=== PATIENT | male | born 1935 | race Caucasian/White ===

== ENCOUNTER 2017-02-19 07:49 | Inpatient (IN) | payer OTHER, MEDICARE ==
--- NOTE | 2017-02-19 07:50 | EDPHY ---
H & P Time Seen by Provider: 02/19/17 07:50 Constitutional: Initial Vital Signs Temperature (C) 36.7 C 02/19/17 07:59 Heart Rate 108 H 02/19/17 07:59 Respiratory Rate 20 02/19/17 07:59 Blood Pressure 152/105 H 02/19/17 07:59 O2 Sat (%) 92 02/19/17 07:59 O2 Delivery Mode Non-Rebreather Mask O2 (L/minute) 12 Allergies/Adverse Reactions: No Known Allergies Allergy (Verified 02/19/17 07:59) Home Medications: Medication Instructions Recorded Aspirin EC [Aspirin EC 325 mg 325 mg PO DAILY 02/28/14 (OTC)] Carbidopa/Levodopa 10/100Mg 2 tab PO ,,,,212902/28/14 [Sinemet 10/100 MG (RX)] Docusate Sodium [Colace 100 MG 100 mg PO BID 02/28/14 (OTC)] Polyethylene Glycol 3350 [Miralax 17 gm PO HS 02/28/14 17 gm (OTC)] Pravastatin Sodium [Pravachol] 20 mg PO HS 02/28/14 Venlafaxine Xr [Effexor Xr 75MG 75 mg PO ,02/28/14 (RX)] Venlafaxine Xr [Effexor Xr] 150 mg PO DAILY 02/28/14 Acetaminophen [Tylenol ES 500 mg 500 - 1,000 mg PO Q8 PRN 02/19/17 (*)] Alfuzosin HCl [Alfuzosin HCl ER] 10 mg PO DAILY 02/19/17 Cyanocobalamin [Vitamin B12 (*)] 500 mcg PO DAILY 02/19/17 Herbals/Supplements -Info Only 1 ea PO DAILY 02/19/17 Memantine HCl [Namenda 5 mg (*)] 5 mg PO DAILY 02/19/17 Memantine HCl [Namenda 5 mg (*)] 10 mg PO HS 02/19/17 QUEtiapine FUMARATE [Seroquel 100 100 mg PO HS 02/19/17 mg (*)] Ranitidine HCl 600 mg PO HS 02/19/17 risperiDONE [Risperdal 0.5mg (*)] 0.5 mg PO BID 02/19/17 risperiDONE [Risperdal 0.5mg (*)] 0.5 mg PO DAILY PRN 02/19/17 Medical Decision Making - Diagnostics Imaging Results: Imaging Impressions Chest X-Ray 02/19/17 07:56 Impression: Diffuse left lung opacity is presumably pneumonia. Results called and discussed with Ken Ramirez MD on February 19, 2017 at 1018 hours. Imaging: Discussed imaging studies w/ on call Radiologist, I viewed and interpreted images myself ED Course/Re-evaluation: CHIEF COMPLAINT: Hypoxemia HISTORY OF PRESENT ILLNESS: This patient is an 81 year old male with history of Parkinson's dementia arriving via EMS from [facility] after his family found him breathing with more difficulty this morning. His oxygen saturation at that time was 73%. The patient lives in a memory care unit with no medical treatment options. He has MOST paperwork defining his scope of treatment to limited interventions including fluids and antibiotics, but no airway or cardiac interventions. The patient is non-verbal and non-interactive, moaning occasionally. The patient's states he is usually awake and alert. She reports he had a stroke in November of this year, and was treated at the [facility] for one week. He has since progressed to mechanical soft diet, and his family reports he has been improving. His son reports that Monday morning, two days ago, he choked on a sausage at breakfast, and nursing staff were concerned regarding possible aspiration. HPI obtained primarily through EMS and family at bedside. REVIEW OF SYSTEMS: A 10 point review of systems was performed and is negative with the exception of the elements mentioned in the history of present illness. PHYSICAL EXAM: HR, BP, O2 Sat, RR. Temp noted General Appearance: Non-verbal, non-interactive, well hydrated and non-toxic appearing. Head: Atraumatic without scalp tenderness or obvious injury Eyes: Pupils equal, round, reactive to light and accommodation, EOMI, no trauma , no injection. Ears: Clear bilaterally, no perforation, normal landmarks Nose: Atraumatic, no rhinorrhea, clear. Throat: There is no erythema or exudates, no lesions, normal tonsils, mucus membranes moist. Neck: Supple, nontender, no lymphadenopathy. Respiratory: Diffuse rhonchi. No retractions, no distress, no wheezes, and no accessory muscle use. Cardiovascular: Regular rate and rhythm, no murmurs, rubs, or gallops. Good capillary refill all extremities. Gastrointestinal: Abdomen is soft, nontender, non-distended, no masses, no rebound, no guarding, no peritoneal signs. Musculoskeletal: Normal active ROM of all extremities, atraumatic. Neurological: Obtunded, non-verbal, non-interactive. Nonfocal neuro exam. Skin: No rashes, good turgor, no nodules on palpation. Past medical history: Parkinson's dementia, bipolar, GERD, CAD, CRD stage III Past surgical history: Noncontributory Family history: Noncontributory Social history: Lives at [facility]. PCP Noman Gibbs. DIFFERENTIAL DIAGNOSIS: The differential diagnosis for the patient's fever included but was not limited to pneumonia, urinary tract infection, viral syndrome, meningitis, and sepsis. MEDICAL DECISION MAKING: This patient is an 81 year old male with stage III kidney disease and Parkinson' s dementia presenting today following noted hypoxemia and abnormal behavior at his [facility]. He has improved from 73% oxygen saturation to 95% on oxygen via nonrebreather. Physical exam reveals diffuse rhonchi. Plan for chest x-ray to assess for acute processes including pneumonia or other infection. The patient has limited treatment options due to hie DNR/MOST. As he will accept fluids and antibiotics, plan to treat with Ertapenem and Levaquin. His family approves of this treatment. 8:30 Reviewed x-ray results and discussed with Dr. Santo Denney, radiologist. Diffuse bilateral infiltrate noted, indicative of pneumonia. Plan to administer 1gm IV Ertapenem and 750mg IV Levaquin for treatment of possible aspiration and infection. 8:47 Spoke with hospitalist service. Dr. Culver accepts admission for pneumonia. 8:52 Reassessed patient. Spoke with family regarding results of chest x-ray and plan for admission. I answered the family's questions appropriately, and they are comfortable with the patient's admission for pneumonia. - Data Points Laboratory Results: Laboratory Results 02/19/17 07:51 02/19/17 07:51 02/19/17 02/19/17 02/19/17 07:51 07:51 07:51 WBC 14.25 10^3/uL H 10^3/uL (3.80-9.50) RBC 4.64 10^6/uL 10^6/uL (4.40-6.38) Hgb 14.5 g/dL g/dL (13.7-17.5) Hct 44.3 % % (40.0-51.0) MCV 95.5 fL fL (81.5-99.8) MCH 31.3 pg pg (27.9-34.1) MCHC 32.7 g/dL g/dL (32.4-36.7) RDW 13.2 % % (11.5-15.2) Plt Count 224 10^3/uL 10^3/uL (150-400) MPV 9.6 fL fL (8.7-11.7) Neut % (Auto) 88.6 % H % (39.3-74.2) Lymph % (Auto) 4.8 % L % (15.0-45.0) Waller % (Auto) 5.8 % % (4.5-13.0) Eos % (Auto) 0.0 % L % (0.6-7.6) Baso % (Auto) 0.1 % L % (0.3-1.7) Nucleat RBC Rel Count 0.0 % % (0.0-0.2) Absolute Neuts (auto) 12.62 10^3/uL H 10^3/uL (1.70-6.50) Absolute Lymphs (auto) 0.68 10^3/uL L 10^3/uL (1.00-3.00) Absolute Monos (auto) 0.83 10^3/uL H 10^3/uL (0.30-0.80) Absolute Eos (auto) 0.00 10^3/uL L 10^3/uL (0.03-0.40) Absolute Basos (auto) 0.02 10^3/uL 10^3/uL (0.02-0.10) Absolute Nucleated RBC 0.00 10^3/uL 10^3/uL (0-0.01) Immature Gran % 0.7 % % (0.0-1.1) Immature Gran # 0.10 10^3/uL 10^3/uL (0.00-0.10) Sodium 145 mEq/L H mEq/L (134-144) Potassium 4.6 mEq/L mEq/L (3.5-5.2) Chloride 108 mEq/L mEq/L (97-110) Carbon Dioxide 20 mEq/l L mEq/l (22-31) Anion Gap 17 mEq/L H mEq/L (8-16) BUN 42 mg/dL H mg/dL (7-23) Creatinine 1.6 mg/dL H mg/dL (0.7-1.3) Estimated GFR 42 Glucose 153 mg/dL H mg/dL (70-100) Calcium 10.3 mg/dL mg/dL (8.5-10.4) NT-Pro-B Natriuret Pep 8850 pg/mL H pg/mL (0-450) Medications Given: Discontinued Medications Ertapenem 1 gm/ Sodium (Chloride) 100 mls @ 200 mls/hr IV EDNOW ONE PRN Reason: Protocol Stop: 02/19/17 09:19 Last Admin: 02/19/17 10:30 Dose: 100 mls Levofloxacin/Dextrose (Levaquin 750 Mg (Premix)) 150 mls @ 100 mls/hr IV EDNOW ONE PRN Reason: Protocol Stop: 02/19/17 10:19 Last Admin: 02/19/17 09:13 Dose: 150 mls Departure - Departure Disposition: [facility] Inpatient Acute Clinical Impression: Pneumonia Qualifiers: Pneumonia type: aspiration pneumonia Aspiration pneumonia type: unspecified Laterality: bilateral Lung location: unspecified part of lung Qualified Code(s) : J69.0 - Pneumonitis due to inhalation of food and vomit Condition: Fair Report Scribed for: Ken Ramirez Report Scribed by: Deysi Martinez Date of Report: 02/19/17 Time of Report: 08:44
[2017-02-19 08:31] LABS: % IMMATURE GRANULYOCYTES 0.7 % (0.0-1.1); ADD DIFF? NO; ADD MORPH? NO; ADD SCAN? YES; ATYPICAL LYMPHOCYTE FLAG 10 (0-99); FRAGMENT RBC FLAG 0 (0-99); HEMATOCRIT 44.3 % (40.0-51.0); HEMOGLOBIN 14.5 g/dL (13.7-17.5); LEFT SHIFT FLG 0 (0-99); LIPEMIA HEMOLYSIS FLAG 80 (0-99); MEAN CELL HEMOGLOBIN 31.3 pg (27.9-34.1); MEAN CELL HEMOGLOBIN CONCENTR. 32.7 g/dL (32.4-36.7); MEAN CELL VOLUME 95.5 fL (81.5-99.8); MEAN PLATELET VOLUME 9.6 fL (8.7-11.7); PLATELET COUNT 224 10^3/uL (150-400); RED BLOOD CELL COUNT 4.64 10^6/uL (4.40-6.38); RED CELL DISTRIBUTION WIDTH 13.2 % (11.5-15.2)
[2017-02-19 08:44] LABS: PLATELET CLUMPS FLAG 300 (0-99)
[2017-02-19] MEDS ORDERED: ERTAPENEM 1 GM in NS 100 ML IV ONE (08:50)
[2017-02-19 08:51] LABS: ANION GAP 17 mEq/L (8-16); CALCIUM 10.3 mg/dL (8.5-10.4); CARBON DIOXIDE 20 mEq/l (22-31); CHLORIDE 108 mEq/L (97-110); CREATININE 1.6 mg/dL (0.7-1.3); GLOMERULAR FILTRATION RATE 42; GLUCOSE 153 mg/dL (70-100); POTASSIUM 4.6 mEq/L (3.5-5.2); SODIUM 145 mEq/L (134-144)
[2017-02-19 09:11] LABS: SCAN NEGATIVE
[2017-02-19] MEDS ORDERED: ACETAMINOPHEN 325 MG TAB PO PRN (11:19)
[2017-02-19] MEDS ORDERED: ONDANSETRON 4 MG/2 ML VIAL IVP PRN (11:19)
[2017-02-19] MEDS: D5W 1/2 NS W/ 20 KCl/L 1,000 ML IV SCH ×2 (11:44→21:30)
--- NOTE | 2017-02-19 11:54 | GHP ---
[f rep st] HISTORY AND PHYSICAL DATE OF ADMISSION: 02/19/2017 CHIEF COMPLAINT: Altered mental status. HISTORY OF PRESENT ILLNESS: This is an 81-year-old male with a history of dementia, previous stroke , Parkinson's disease and depression, who resides at [facility] in [place], who was brought to the emergency department due to altered mental status and trouble breathing. During the time of my exam, the patient was virtually unarousable. All history was obtained via the patient's son and spouse. The patient was noted to have some choking at 10:00 p.m. on Monday. On Monday morning, he also ch oked on a sausage. Around lunchtime, he ate half his breakfast and in the afternoon was noted to fischer ve poor color and some shortness of breath. He was checked on by his son as well as a nurse at the [facility], where he was noted to have some "raspy" breathing. Since yesterday, he has had worsening somnolence and has not been able to take any of his medications. He was brought into the emergency department for further evaluation. He has not been noted to have any fevers. He had been in his usual state of health up until yesterd ay. He has been seen by a speech therapist in the past after his stroke in November, who did note some swallowing difficulties that they attributed to his Parkinson's. PAST MEDICAL HISTORY: 1. CVA in November of 2016, [facility]. 2. Parkinson's disease. 3. Depression. 4. Bipolar. 5. Dementia. PAST SURGICAL HISTORY: Denies. HOME MEDICATIONS: Reviewed. Refer to [facility] for details. ALLERGIES: No known drug allergies. SOCIAL HISTORY: No history of alcohol, tobacco, or illicit drug use. FAMILY HISTORY: Reviewed and noncontributory. REVIEW OF SYSTEMS: A comprehensive 10-point review of systems was attempted. However, this was nila btainable due to the patient's altered mental status. PHYSICAL EXAMINATION: VITAL SIGNS: Blood pressure 135/95, pulse of 107, respiratory rate 22, O2 sa turation 95% on nonrebreather, temperature 37.3. GENERAL: Ill-appearing. HEAD: Normocephalic, at raumatic. EYES: PERRLA. Sclerae anicteric. MOUTH: Moist mucous membranes. NECK: Supple. No l ymphadenopathy. CARDIOVASCULAR: Tachycardic. S1, S2. There is JVD. There is no lower extremity edema. PULMONARY: Bilateral rales, left greater than right, with some rhonchi. No wheezing. The patient is slightly tachypneic. ABDOMEN: Soft, nontender, nondistended. No guarding or rebound te nderness. Normoactive bowel sounds. EXTREMITIES: No clubbing or cyanosis. NEURO: Hard to assess due to the patient's altered mental status. He is not following commands. Face does appear to be symmetric. SKIN: Clear. No rashes, but I did not examine the patient for decubiti. DIAGNOSTICS: WBC is 14.2, hemoglobin 14.5, hematocrit 44.3, platelets 224. Sodium 145, potassium 4 .6, chloride 108, CO2 of 20, BUN 42, creatinine 1.6, glucose 153. Chest x-ray, which I visualized and personally interpreted, shows diffuse left lung capacity. ASSESSMENT AND PLAN: This is an 81-year-old male with a history of Parkinson's, prior cerebrovascul ar accident, dementia and bipolar/depression, presenting with: 1. Sepsis in the setting of SIRS criteria and pneumonia. [facility] He has been started on ertapenem to cover for possible aspiration pneumonia, whi ch seems reasonable. 2. Suspected aspiration pneumonia. Continue ertapenem. Will ask for Speech Therapy evaluation. 3. Mild hypernatremia and prerenal azotemia most likely due to dehydration. Will start half normal saline IV and repeat labs in the morning. 4. Mild jugular vein distention with some cephalization on his chest x-ray. Will obtain a brain na triuretic peptide to screen for congestive heart failure. 5. History of Parkinson's disease. Will attempt to resume home medications once he is awake and ab le to swallow. CODE STATUS: The patient does have a MOLST form that has been completed, which confirms a DNR statu s with limited additional interventions. The family would like to use antibiotics when comfort is t he goal. At this juncture, I think it is reasonable to treat him with antibiotics to see if his con dition improves. If he is not improving, I think it may be reasonable to discuss hospice in the nex t few days. The patient is at high risk for VTE and will start him on low molecular weight heparin for DVT proph ylaxis. /[id number]/MODL
[2017-02-19] MEDS ORDERED: risperiDONE 0.5 MG TAB PO PRN (17:46)
[2017-02-19] MEDS: morphINE 10 MG/0.5 ML UDSYR PO PRN ×2 (18:13→23:20)
[2017-02-19] MEDS ORDERED: RANITIDINE HCL PO SCH (21:00)
[2017-02-19] MEDS ORDERED: FAMOTIDINE 20 MG TAB PO SCH (21:00)
[2017-02-19] MEDS ORDERED: MEMANTINE HCL 5 MG TAB PO SCH (21:00)
[2017-02-19] MEDS ORDERED: QUEtiapine FUMARATE 100 MG TAB PO SCH (21:00)
[2017-02-19] MEDS ORDERED: PRAVASTATIN SODIUM 40 MG TAB PO SCH (21:00)
[2017-02-19] MEDS ORDERED: POLYETHYLENE GLYCOL 3350 17 GM PKT PO SCH (21:00)
[2017-02-19] MEDS: DOCUSATE SODIUM 100 MG CAP PO SCH (21:36)
[2017-02-19] MEDS: CARBIDOPA/LEVODOPA 10MG/100MG 1 TAB PO SCH ×2 (21:36→21:39)
[2017-02-19] MEDS: risperiDONE 0.5 MG TAB PO SCH (21:38)
[2017-02-19] MEDS: VENLAFAXINE XR 75 MG CAP PO SCH (21:39)
[2017-02-20] MEDS: CARBIDOPA/LEVODOPA 10MG/100MG 1 TAB PO SCH ×2 (05:04→12:24)
[2017-02-20 06:07] LABS: % IMMATURE GRANULYOCYTES 0.8 % (0.0-1.1); ABSOLUTE IMMATURE GRANULOCYTES 0.19 10^3/uL (0.00-0.10); ADD DIFF? NO; ADD MORPH? NO; ADD SCAN? NO; ATYPICAL LYMPHOCYTE FLAG 0 (0-99); FRAGMENT RBC FLAG 0 (0-99); HEMATOCRIT 41.1 % (40.0-51.0); HEMOGLOBIN 13.5 g/dL (13.7-17.5); LEFT SHIFT FLG 10 (0-99); LIPEMIA HEMOLYSIS FLAG 80 (0-99); MEAN CELL HEMOGLOBIN 31.3 pg (27.9-34.1); MEAN CELL HEMOGLOBIN CONCENTR. 32.8 g/dL (32.4-36.7); MEAN CELL VOLUME 95.1 fL (81.5-99.8); MEAN PLATELET VOLUME 9.7 fL (8.7-11.7); PLATELET CLUMPS FLAG 50 (0-99); PLATELET COUNT 165 10^3/uL (150-400); RED BLOOD CELL COUNT 4.32 10^6/uL (4.40-6.38); RED CELL DISTRIBUTION WIDTH 13.2 % (11.5-15.2)
[2017-02-20] MEDS: morphINE 10 MG/0.5 ML UDSYR PO PRN ×5 (06:31→15:55)
[2017-02-20 07:33] LABS: ANION GAP 12 mEq/L (8-16); CARBON DIOXIDE 18 mEq/l (22-31); CHLORIDE 113 mEq/L (97-110); CREATININE 1.7 mg/dL (0.7-1.3); GLOMERULAR FILTRATION RATE 39; GLUCOSE 118 mg/dL (70-100); POTASSIUM 4.8 mEq/L (3.5-5.2); SODIUM 143 mEq/L (134-144)
[2017-02-20] MEDS ORDERED: ERTAPENEM 1 GM in NS 100 ML IV SCH (09:00)
[2017-02-20] MEDS ORDERED: CYANO/VITAMIN B12 1000 MCG TAB PO SCH (09:00)
[2017-02-20] MEDS ORDERED: MEMANTINE HCL 5 MG TAB PO SCH (09:00)
[2017-02-20] MEDS ORDERED: NON-FORMULARY NEW DRUG (Alfuzosin Hcl [Alfuzosin Hcl Er] 10 MG) PO SCH (09:00)
[2017-02-20] MEDS ORDERED: ENOXAPARIN 40 MG/0.4 ML SYR SC SCH (09:00)
[2017-02-20] MEDS ORDERED: ASPIRIN EC 325 MG TAB PO SCH (09:00)
[2017-02-20] MEDS ORDERED: Herbals/Supplements -Info Only PO SCH (09:00)
[2017-02-20] MEDS ORDERED: VENLAFAXINE XR 150 MG CAP PO SCH (09:00)
[2017-02-20 09:12] VITALS: BP 90/67; RESP 32; TEMP 99.4
[2017-02-20] MEDS: DOCUSATE SODIUM 100 MG CAP PO SCH (09:39)
[2017-02-20] MEDS: risperiDONE 0.5 MG TAB PO SCH (09:40)
--- NOTE | 2017-02-20 11:41 | HOSPPROG ---
Hospitalist Progress Note Assessment/Plan: 81 y/o male presenting with #acute resp failure with suspected aspiration pneumonia #Severe sepsis #hypernatremia (resolved) #h/o Parkinson disease #elevated BNP Plan: -pt is worsening. - is amendable to hospice -will dc abx -hospice consult ordered dc when placement obtained prognosis is grim Subjective: pt is unresponsive Objective: Vital Signs Temp Pulse Resp BP Pulse Ox 37.4 C 130 H 32 H 90/67 L 77 L 02/20/17 09:11 02/20/17 09:11 02/20/17 09:11 02/20/17 09:11 02/20/17 09:11 Laboratory Results 02/20/17 05:14 02/20/17 05:14 02/19/17 02/20/17 02/21/17 05:59 05:59 05:59 Intake Total 1500 Balance 1500 - Physical Exam Constitutional: chronically ill appearing Cardiovascular: regular rate and rhythym, no murmur, rub, or gallop Respiratory: respiratory distress, rhonchi Neurologic: other (aaox0) ICD10 Worksheet Patient Problems: Problems Problem Status Onset Pneumonia Acute
[2017-02-20] MEDS: VENLAFAXINE XR 75 MG CAP PO SCH (14:57)
[2017-02-20 16:32] VITALS: PULSE 43; O2SAT 50
--- NOTE | 2017-02-21 09:06 | GDS ---
[f rep st] DISCHARGE SUMMARY DATE OF : 02/20/2017. DIAGNOSES: 1. Aspiration pneumonia. 2. Severe sepsis. 3. End-stage dementia. 4. History of multiple sclerosis. HOSPITAL COURSE: Severe sepsis in the setting of aspiration pneumonia. The patient presented to [facility] from his memory care unit with shortness of breath and sepsis criteria. Initially, he wa s treated with Levaquin and ertapenem in the emergency department. On hospital day #1, his conditio n continued to decline. The patient's family requested hospice and comfort measures which were orde red. The patient subsequently in his hospital room on 02/20/2017. /[id number]/MODL
== END 2017-02-20 16:30 | disposition expired | DRG 871 ==
LOC: EDUNIT# → F1N 10:43
PROVIDERS: ADMIT Family Medicine; ATTEND Family Medicine
DX: A41.9 Sepsis, unspecified organism (principal); J69.0 Pneumonitis due to inhalation of food and vomit; R65.20 Severe sepsis without septic shock; G35 Multiple sclerosis; G20 Parkinson's disease; F02.80 Dementia in other diseases classified elsewhere, unspecified severity, without behavioral disturbance, psychotic disturbance, mood disturbance, and anxiety; Z66 Do not resuscitate
CPT/HCPCS: 96365; J1335; J1650; J1956